=== PATIENT | female | born 1975 | race Caucasian/White ===

== ENCOUNTER 2016-11-25 09:40 | Day surgery (SDC) | payer OTHER ==
[2016-11-25] VITALS (9 sets, daily range): BP systolic 101–134; BP diastolic 61–75; PULSE 74–89; RESP 14–16; TEMP 97.9–98.5; O2SAT 92–100; Ht 177.8 cm; Wt 76.9 kg
[~2016-11-25] VITALS: Ht 177.8 cm; Wt 76.9 kg
[~2016-11-25 09:40] MED LIST: ALBU8.5H5 IH; CEFAZOLIN 1 GRAM INJECTION IV ONE; FEXO180T56 PO; LR 1,000 ML IV SCH
--- OUTSIDE RECORDS SUMMARY | 2016-11-25 09:45 | XMS REPORT | Referral Summary ---
Author Organization Unknown Address Unknown Phone Unavailable Care Team Providers Care Wireless Field Technician Name Role Phone Carmelo Larios Primary Care Physician [phone] Encounter VC Date(s): 09/24/14 - 09/24/14 [facility], Carlos A, [address] [place] [address] Discharge Diagnosis: Apocrine metaplasia of breast Discharge Disposition: Home or Self Care Attending Physician: Nina Horan APRN Admitting Physician: Nina Horan APRN Referring Physician: Bladimir Larios MD Vital Signs Most recent to 1 oldest [Reference Range]: Temperature Tympanic 36.4 degC [36.6-38.1 degC] *LOW* (09/24/14 8:56 AM) Problem List Condition Effective Dates Status Health Status Informant Allergies(Confirmed) Active Asthma(Confirmed) Active GERD Active (gastroesophageal reflux disease)(Confirmed) Migraine Active headache(Confirmed) Allergies, Adverse Reactions, Alerts No Known Medication Allergies Medications albuterol CFC free 90 mcg/inh inhalation aerosol 2 puffs, Inhalation, q4hr, as needed for wheezing, # 1 Each, 1 Refill(s), Pharmacy: [facility] #[id number] Start Date: 07/03/14 Status: Ordered Results No data available for this section Immunizations Vaccine Date Refusal Reason influenza virus vaccine, live 07/17/12 Procedures Procedure Date Related Diagnosis Body Site Bunionectomy1 06/10/11 S/p cholecystectomy 2001 S/P arthroscopy of right knee 2000 S/P tubal ligation 1997 1DR.KEN,T Social History Social History Type Response Smoking Status Current every day smoker Assessment and Plan Extracted from: Title: Ambulatory Patient Education Author: Nina Horan APRN Date : 09/24/14 Family Medicine Hematoma A hematoma is a pocket of blood that collects under the skin, in an organ, in a body space, in a joint space, or in other tissue. The blood can clot to form a lump that you can see and feel. The lump is often firm, sore, and sometimes even painful and tender. Most hematomas get better in a few days to weeks. However, some hematomas may be serious and require medical care.Hematomas can range in size from very small to very large. CAUSES A hematoma can be caused by a blunt or penetrating injury. It can also be caused by leakage from a blood vessel under the skin. Spontaneous leakage from a blood vessel is more likely to occur in elderly people, especially those taking blood thinners. Sometimes, a hematoma can develop after certain medical procedures. SYMPTOMS Unlike a bruise, a hematoma forms a firm lump that you can feel. This lump is the collection of blood. The collection of blood can also cause your skin to turn a blue to dark blue color. If the hematoma is close to the surface of the skin, it often produces a yellowish color in the skin. DIAGNOSIS Your caregiver can determine whether you have a hematoma based on your history and a physical exam. TREATMENT Hematomas usually go away on their own over time. Rarely does the blood need to be drained out of the body. HOME CARE INSTRUCTIONS Put ice on the injured area. Put ice in a plastic bag. Place a towel between your skin and the bag. Leave the ice on for 15-20 minutes, 3-4 times a day for the first 1 to 2 days. After the first 2 days, switch to using warm compresses on the hematoma. Elevate the injured area to help decrease pain and swelling. Wrapping the area with an elastic bandage may also be helpful. Compression helps to reduce swelling and promotes shrinking of the hematoma. Make sure the bandage is not wrapped too tight. If your hematoma is on a lower extremity and is painful, crutches may be helpful for a couple days. Only take vsoh-gux-ysdcmsb or prescription medicines for pain, discomfort, or fever as directed by your caregiver. Most patients can take acetaminophen or ibuprofen for the pain. SEEK IMMEDIATE MEDICAL CARE IF: You have increasing pain, or your pain is not controlled with medicine. You have a fever. You have worsening swelling or discoloration. Your skin over the hematoma breaks or starts bleeding. MAKE SURE YOU: Understand these instructions. Will watch your condition. Will get help right away if you are not doing well or get worse. Document Released: 03/29/2005 Document Revised: 11/06/2012 Document Reviewed: [employer] Patient Information 2014 [employer]. No follow up information was provided. Extracted from: Title: Office Visit Note Author: Nina Horan APPLICATIONS TESTER Date: 09/24/14 Assessment/Plan Apocrine metaplasia of breast Breast biopsy was completely benign. No sign of cancer or precancer. The slight firmness along the incision will continue to soften over the next several months. He sure to keep up with annual mammograms and self breast exams on a monthly basis. Continue general medical care through your primary care physician. Return to our office on an as-needed basis. Ordered: Postoperative Est 13212
--- OUTSIDE RECORDS SUMMARY | 2016-11-25 09:45 | XMS REPORT | Referral Summary ---
Author Author [facility], Family Medicine Organization [facility] Address Unknown Phone Unavailable Care Team Providers Care Manager Wellness Name Role Phone Carmelo Larios Primary Care Physician [phone] Encounter VC Date(s): 09/27/16 - 09/27/16 [facility] [place] [facility] [address] [place] [address] Discharge Diagnosis: Periumbilical abdominal pain Discharge Disposition: 01-Home or Self Care Attending Physician: Bladimir Larios MD Admitting Physician: Bladimir Larios MD Vital Signs Most recent to 1 oldest [Reference Range]: Temperature Tympanic 36.4 degC [36.6-38.1 degC] *LOW* (09/27/16 10:27 AM) Peripheral Pulse 79 bpm Rate [60-100 bpm] (09/27/16 10:27 AM) Blood Pressure 120/60 mmHg [90-140/60-90 mmHg] (09/27/16 10:27 AM) Problem List Condition Effective Dates Status Health Status Informant Allergies(Confirmed) Active Asthma(Confirmed) Active GERD Active (gastroesophageal reflux disease)(Confirmed) Migraine Active headache(Confirmed) Allergies, Adverse Reactions, Alerts No Known Medication Allergies Medications albuterol CFC free 90 mcg/inh inhalation aerosol 2 puffs, Inhalation, q4hr, as needed for wheezing, # 1 Each, 1 Refill(s), Pharmacy: [facility] #[id number] Start Date: 04/13/16 Status: Ordered ibuprofen 200 mg, Oral, as needed for pain, 0 Refill(s) Start Date: 09/27/16 Status: Ordered Results Hematology Most recent to 1 oldest [Reference Range]: WBC [5.0-10.0 8.2 10*3/uL 10*3/uL] (09/27/16 11:07 AM) RBC [3.70-5.20] 4.57 (09/27/16 11:07 AM) Hgb [12.0-16.0 14.4 gm/dL gm/dL] (09/27/16 11:07 AM) Hct [37.0-47.0 %] 42.6 % (09/27/16 11:07 AM) MCV [80.0-96.0 fL] 93.2 fL (09/27/16 11:07 AM) MCH [26.0-34.0 pg] 31.5 pg (09/27/16 11:07 AM) MCHC [32.0-36.0 33.8 gm/dL gm/dL] (09/27/16 11:07 AM) RDW [0.0-14.5 %] 13.1 % (09/27/16 11:07 AM) Platelet [150-400 193 10*3/uL 10*3/uL] (09/27/16 11:07 AM) MPV [8.8-14.8 fL] 11.0 fL (09/27/16 11:07 AM) Neutrophils [50-70 58 % %] (09/27/16 11:07 AM) Lymphocytes [20-40 31 % %] (09/27/16 11:07 AM) Monocytes [4-8 %] 10 % *HI* (09/27/16 11:07 AM) Eosinophils [0-6 %] 2 % (09/27/16 11:07 AM) Basophils [0-2 %] 0 % (09/27/16 11:07 AM) Neutro Absolute 4.75 [2.50-7.00] (09/27/16 11:07 AM) Lymph Absolute 2.56 [1.00-4.00] (09/27/16 11:07 AM) Cocke Absolute 0.78 [0.20-0.80] (09/27/16 11:07 AM) Eos Absolute 0.14 [0.00-0.60] (09/27/16 11:07 AM) Baso Absolute 0.02 [0.00-0.30] (09/27/16 11:07 AM) Chemistry Most recent to 1 oldest [Reference Range]: U Beta hCG Ql Negative (09/27/16 11:07 AM) Urinalysis Most recent to 1 oldest [Reference Range]: UA Color Yellow (09/27/16 11:07 AM) UA Appear Clear (09/27/16 11:07 AM) UA pH [5.0-8.0] 5.5 (09/27/16 11:07 AM) UA Leuk Est Negative 1 [Negative] (09/27/16 11:07 AM) UA Nitrite Negative [Negative] (09/27/16 11:07 AM) UA Protein Negative [Negative] (09/27/16 11:07 AM) UA Glucose Negative [Negative] (09/27/16 11:07 AM) UA Ketones Trace [Negative] *ABN* (09/27/16 11:07 AM) UA Urobilinogen 0.2 mg/dL [<=1.0 mg/dL] (09/27/16 11:07 AM) UA Bili [Negative] Negative (09/27/16 11:07 AM) UA Blood [Negative] Negative (09/27/16 11:07 AM) UA Spec Grav 1.020 [1.003-1.030] (09/27/16 11:07 AM) Type Clean Catch (09/27/16 11:07 AM) 1Result Comment: Reflex microscopic not needed Immunizations Given and Recorded Vaccine Date Status Refusal Reason influenza virus vaccine, live 07/17/12 Given Procedures Procedure Date Related Diagnosis Body Site Collection of venous blood by venipuncture 09/27/16 Biopsy of breast1 09/09/14 Bunionectomy2 06/10/11 S/p cholecystectomy 2001 S/P arthroscopy of right knee 2000 S/P tubal ligation 1997 1BENIGN 2DR.Adriel ROGERS Social History Social History Type Response Smoking Status Current every day smoker Assessment and Plan No data available for this section
--- OUTSIDE RECORDS SUMMARY | 2016-11-25 09:45 | XMS REPORT | Referral Summary ---
Author Author [facility], Family Medicine Organization [facility] Address Unknown Phone Unavailable Care Team Providers Care Assistant Store Manager Sales Name Role Phone Carmelo Larios Primary Care Physician [phone] Encounter VC Date(s): 12/30/14 - 12/30/14 [facility] [place], [address] [place] [address] Discharge Diagnosis: Allergic asthma Discharge Diagnosis: Acute sinusitis Discharge Disposition: 01-Home or Self Care Attending Physician: Galo White DO Admitting Physician: Galo White DO Referring Physician: Bladimir Larios MD Vital Signs Most recent to 1 oldest [Reference Range]: Temperature Tympanic 36.9 degC [36.6-38.1 degC] (12/30/14 9:49 AM) Peripheral Pulse 88 bpm Rate [60-100 bpm] (12/30/14 9:49 AM) Blood Pressure 118/71 mmHg [90-140/60-90 mmHg] (12/30/14 9:49 AM) Problem List Condition Effective Dates Status Health Status Informant Allergies(Confirmed) Active Asthma(Confirmed) Active GERD Active (gastroesophageal reflux disease)(Confirmed) Migraine Active headache(Confirmed) Allergies, Adverse Reactions, Alerts No Known Medication Allergies Medications albuterol CFC free 90 mcg/inh inhalation aerosol 2 puffs, Inhalation, q4hr, as needed for wheezing, # 1 Each, 1 Refill(s), Pharmacy: [facility] #[id number] Start Date: 07/03/14 Status: Ordered Results No data available for this section Immunizations Vaccine Date Refusal Reason influenza virus vaccine, live 07/17/12 Procedures Procedure Date Related Diagnosis Body Site Biopsy of breast1 09/09/14 Bunionectomy2 06/10/11 S/p cholecystectomy 2001 S/P arthroscopy of right knee 2000 S/P tubal ligation 1997 1BENIGN 2DR.Adriel ROGERS Social History Social History Type Response Smoking Status Current every day smoker Assessment and Plan Extracted from: Title: Office Visit Note Author: Galo White DO Date: 12/30/14 Assessment/Plan Acute sinusitis 1. Amoxicillin twice a day for 10 days. 2. Prednisone 20 mg daily for 5 days. 3. Nasal rinses twice a day until symptoms resolve. Ordered: amoxicillin, 1 tabs, Oral, BID, X 10 days, # 20 tabs, 0 Refill(s), Pharmacy: [facility] #[id number], 1 tabs Oral BID,x10 days predniSONE, 1 tabs, Oral, Daily, X 5 days, # 5 tabs, 0 Refill(s), Pharmacy: [facility] #[id number], 1 tabs Oral Daily,x5 days Office Visit Level 3 Est 77428 Allergic asthma 1. Continue with rescue inhaler 2 puffs every 4 hours as needed for coughing, wheezing or shortness of breath. 2. Follow-up if worsening presentation.
--- OUTSIDE RECORDS SUMMARY | 2016-11-25 09:45 | XMS REPORT | Referral Summary ---
Author Author [facility] [place], Surgery Organization [facility] Address Unknown Phone Unavailable Care Team Providers Care Agriculture Intern Name Role Phone Carmelo Larios Primary Care Physician [phone] Encounter VC Date(s): 09/28/16 - 09/28/16 [facility] [place], Surgery [address] [place] [address] [place] [address] Discharge Diagnosis: Umbilical hernia Discharge Disposition: 01-Home or Self Care Attending Physician: Artur Galarza MD Admitting Physician: Artur Galarza MD Referring Physician: Bladimir Larios MD Vital Signs Most recent to 1 oldest [Reference Range]: Temperature Tympanic 36.4 degC [36.6-38.1 degC] *LOW* (09/28/16 4:04 PM) Peripheral Pulse 85 bpm Rate [60-100 bpm] (09/28/16 4:04 PM) Blood Pressure 112/68 mmHg [90-140/60-90 mmHg] (09/28/16 4:04 PM) SpO2 98 % (09/28/16 4:04 PM) Problem List Condition Effective Dates Status Health Status Informant Allergies(Confirmed) Active Asthma(Confirmed) Active GERD Active (gastroesophageal reflux disease)(Confirmed) Migraine Active headache(Confirmed) Allergies, Adverse Reactions, Alerts Substance Reaction Severity Status morphine1 Active 1Lowers already low blood pressure Medications albuterol CFC free 90 mcg/inh inhalation aerosol 2 puffs, Inhalation, q4hr, as needed for wheezing, # 1 Each, 1 Refill(s), Pharmacy: [facility] #[id number] Start Date: 04/13/16 Status: Ordered ibuprofen 200 mg, Oral, as needed for pain, 0 Refill(s) Start Date: 09/27/16 Status: Ordered Results No data available for this section Immunizations Given and Recorded Vaccine Date Status Refusal Reason influenza virus vaccine, live 07/17/12 Given Procedures Procedure Date Related Diagnosis Body Site Biopsy of breast1 09/09/14 Bunionectomy2 06/10/11 S/p cholecystectomy 2001 S/P arthroscopy of right knee 2000 S/P tubal ligation 1997 1BENIGN 2DR.SILVIANG,Adriel Social History Social History Type Response Smoking Status Current every day smoker Assessment and Plan Extracted from: Title: Ambulatory Patient Education Author: Artur Galarza MD Date: Procedures Umbilical Herniorrhaphy Herniorrhaphy is surgery to repair a hernia. A hernia is the protrusion of a part of an organ through an abdominal opening. An umbilical hernia means that your hernia is in the area around your navel. If the hernia is not repaired, the gap could get bigger. Your intestines or other tissues, such as fat, could get trapped in the gap. This can lead to other health problems, such as blocked intestines. If the hernia is fixed before problems set in, you may be allowed to go home the same day as the surgery (outpatient). LET YOUR HEALTH CARE PROVIDER KNOW ABOUT: Allergies to food or medicine. Medicines taken, including vitamins, herbs, eye drops, jtvw-ijz-itghtjj medicines, and creams. Use of steroids (by mouth or creams). Previous problems with anesthetics or numbing medicines. History of bleeding problems or blood clots. Previous surgery. Other health problems, including diabetes and kidney problems. Possibility of , if this applies. RISKS AND COMPLICATIONS Pain. Excessive bleeding. Hematoma. This is a pocket of blood that collects under the surgery site. Infection at the surgery site. Numbness at the surgery site. Swelling and bruising. Blood clots. Intestinal damage (rare). Scarring. Skin damage. Development of another hernia. This may require another surgery. BEFORE THE PROCEDURE Ask your health care provider about changing or stopping your regular medicines. You may need to stop taking aspirin, nonsteroidal anti-inflammatory drugs (NSAIDs), vitamin E, and blood thinners as early as 2 weeks before the procedure. Do not eat or drink for 8 hours before the procedure, or as directed by your health care provider. You might be asked to shower or wash with an antibacterial soap before the procedure. Wear comfortable clothes that will be easy to put on after the procedure. PROCEDURE You will be given an intravenous (IV) tube. A needle will be inserted in your arm. Medicine will flow directly into your body through this needle. You might be given medicine to help you relax (sedative). You will be given medicine that numbs the area (local anesthetic) or medicine that makes you sleep (general anesthetic). If you have open surgery: The surgeon will make a cut (incision) in your abdomen. The gap in the muscle wall will be repaired. The surgeon may sew the edges together over the gap or use a mesh material to strengthen the area. When mesh is used, the body grows new, strong tissue into and around it. This new tissue closes the gap. A drain might be put in to remove excess fluid from the body after surgery. The surgeon will close the incision with stitches, glue, or melvi. If you have laparoscopic surgery: The surgeon will make several small incisions in your abdomen. A thin, lighted tube (laparoscope) will be inserted into the abdomen through an incision. A camera is attached to the laparoscope that allows the surgeon to see inside the abdomen. Tools will be inserted through the other incisions to repair the hernia. Usually, mesh is used to cover the gap. The surgeon will close the incisions with stitches. AFTER THE PROCEDURE You will be taken to a recovery area. A nurse will watch and check your progress. When you are awake, feeling well, and taking fluids well, you may be allowed to go home. In some cases, you may need to stay overnight in the hospital. Arrange for someone to drive you home. This information is not intended to replace advice given to you by your health care provider. Make sure you discuss any questions you have with your health care provider. Document Released: 11/11/2009 Document Revised: 09/05/2015 Document Reviewed: [employer] Interactive Patient Education 2016 [employer] No follow up information was provided. Extracted from: Title: Office Visit Note Author: Artur Galarza MD Date: 09/28/16 Assessment/Plan 1.Umbilical hernia Ordered: Office Visit Level 4 Est 15192 Plan:Umbilical herniorrhaphy with potential incorporation of mesh: I did review the patient's chart including office note performed by her PCP from September 27, 2016.I informed the patient that she does indeed have a umbilicalhernia.I donot feel that her umbilical hernia at this time isincarcerated or strangulated.I would recommend that at some point in time she proceed with an electiveumbilical herniorrhaphy.I spent a fair amount of time discussing hernias with the patient, I did discuss in detail with the patient what an umbilical herniorrhaphy with mesh entailed and its associated riskswhich included but was not inclusive of bleeding and infection, as well as potential for recurrence. The patient understood and was scheduled to undergo umbilical herniorrhaphy with potential incorporation of mesh in the near future.
--- NOTE | 2016-11-25 10:18 | ANESPREOP ---
Anesthesia Record Date and Time DATE: 11/25/16 TIME: 10:16 Pre-Op Diagnosis umbilical hernia Proposed Surgical Procedure UMBILICAL HERNIA REPAIR Allergies: Coded Allergies: morphine (Unverified Adverse Reaction, Unknown, HYPOTENSION, 11/24/16) Ht/Wt/BMI Height: 5 ' 11.00 " Weight: kg BMI: kg/m2 Medications Inpatient Medications Current Medications Medications (Trade) Dose Ordered Sig/Katina Start Time Stop Time Status Last Admin Dose Admin Lactated Ringer's (Lactated Ringers) 1,000 ml @ 50 mls/hr Q20H 11/25/16 07:00 Albuterol Sulfate (Proair Hfa) 8.5 Gm Aerosol, 8.5 GM IH PRN, (Reported) Fexofenadine Hcl (Mariana) 180 Mg Tablet, 180 MG PO PRN, (Reported) Currently on Beta Crystal: No Medical/Surgical History Anesthesia PMH: Reports: Asthma, Reflux, Denies: Anesthesia Reactions (NO AIRWAY ISSUES ), Cancer, Clotting Problems, Glaucoma, Malignant Hyperthermia, Sleep Apnea Smoking Status: Current every day smoker Has pt. smoked today?: No Use Chewing Tobacco?: No Second Hand Exposure: No Substance Use Type: does not use Substance last used: unknown Alcohol Intake: rarely Last Drink: unknown HX of Last Menstrual Period: OCTOBER 2016 Past Surgical History Orthopedic Surgeries: Yes - R KNEE SCOPE, L BUNIONECTOMY Abdominal Surgeries: Yes - MICHELLE Genitourinary Surgeries: Cardiac Surgeries: Endocrine Surgeries: Reproductive Surgeries: - TUBAL LIGATION, BENIGN MASS-R. BREAST Neurological Surgeries: Ear Surgeries: Nose Surgeries: Throat Surgeries: Other Surgeries: Anesthesia Adverse Reactions: FOUND none Family Hx of Anesthesia Advers: none Hx of Motion Sickness: No Pertinent Findings EKG Rhythm: Sinus Rhythm Physical Exam Respiratory: Bilat breath sounds equal, Lungs clear Cardiovascular: FOUND Regular rate, rhythm, FOUND No murmur Airway Assessment Mallampati Score: I TMD: 3 Fingerbreadths Neck Extension: Good Overall Assessment: No Airway Concerns ASA: 2 Plan Anesthesia Plan: TIVA Discussion Discussed risks/options/alternatives of anesthesia and questions answered. Patient consents. Nursing pain assessment noted. Attestation Statement Prior to the delivery of any anesthetic medication, I examined the patient, developed the plan, obtained the patient's consent and discussed the risk and benefits of the procedure with the patient/guardian. NASIR MOORE CRNA Nov 25, 2016 10:18
[2016-11-25] MEDS ORDERED: LOTE5DRO3 OP (10:26)
[2016-11-25] MEDS ORDERED: HYDROCODONE-APAP 2.5mg-108mg/5ml ELIXIR PO PRN (11:00)
[2016-11-25] MEDS ORDERED: BUPIVACAINE 0.25%/EPI 1:200,000 30ml SDV ONE (12:04)
[2016-11-25] MEDS ORDERED: PROPOFOL 500mg 50 ML IV ONE ×3 (12:08→13:01)
[2016-11-25] MEDS ORDERED: GLYCOPYRROLATE 0.4mg/2ml INJECTION ONE (12:13)
[2016-11-25] MEDS ORDERED: ONDANSETRON 4mg/2ml INJECTION ONE (12:14)
[2016-11-25] MEDS ORDERED: FENTANYL 100mcg/2ml INJECTION ONE ×2 (12:14→12:45)
[2016-11-25] MEDS ORDERED: MIDAZOLAM 2mg/2ml INJECTION ONE (12:22)
[2016-11-25] MEDS ORDERED: KETOROLAC 30mg/ml INJECTION ONE (13:09)
[2016-11-25] MEDS ORDERED: PROPOFOL 200mg 20 ML IV ONE (13:35)
[2016-11-25] MEDS ORDERED: IBUP-1724 PO (13:57)
[2016-11-25] MEDS ORDERED: DOCU100C PO (13:57)
[2016-11-25] MEDS ORDERED: HYDR118S10 PO (13:57)
[2016-11-25] MEDS ORDERED: HYDROMORPHONE 2mg/ml INJECTION IV PRN (14:00)
--- NOTE | 2016-11-25 14:01 | ANESPO ---
Post-Op Note Date 11/25/16 Time: 14:00 Status Pt Participated in Evaluation: Pt participated in person Vital Signs Date Time Temp Pulse Resp B/P Pulse Ox O2 Delivery O2 Flow Rate FiO2 11/25/16 12:15 98.5 11/25/16 10:22 89 16 113/75 100 Room Air Respiratory Function: Airway patent, Regular respirations Cardiovascular Function: Regular pulse Mental Status: Alert/oriented Pain Level Intensity: 0 Hydration: Taking po fluids, IV infusing Complications during Recovery None apparent Post-Anesthesia Notes [email or web address]. [email or web address] Follow-Up Instructions Instructions Per Surgeon Additional Information none NASIR MOORE CRNA Nov 25, 2016 14:01
--- NOTE | 2016-11-26 09:34 | OPNOTEF ---
DATE OF SERVICE 11/08/2016 SURGEON Artur Galarza MD [employer] Maulik Horan APRN PREOPERATIVE DIAGNOSIS Incarcerated umbilical hernia. POSTOPERATIVE DIAGNOSIS Incarcerated ventral and umbilical hernia. PROCEDURE Repair of incarcerated umbilical and ventral hernia. ANESTHESIA TIVA/local BRIEF HISTORY/INDICATIONS Mrs. Benjamin is a 41-year-old female who presented to my office recently as a result of a "lump" located at her umbilicus that was causing her discomfort. Patient also informed me that at times she could feel an area of fullness located a few centimeters above her umbilicus. In fact, the patient told me at times she could feel things "squishing through this area". As a result of the above indications, it was recommended to the patient that she should undergo an elective repair of her visible and palpable umbilical hernia. For completeness, please refer to notes included in the patient's chart. DESCRIPTION OF PROCEDURE After informed consent was obtained, patient was brought to the operative suite and placed on the table in supine fashion. Periumbilical region was then prepped and draped in sterile fashion. Formal time-out was then completed. 0.25% Marcaine with epinephrine was injected circumferentially around the level of the umbilicus. Next, initially a 3 cm curved infraumbilical incision was then performed. Dissection was then carried down to the deep subcuticular tissues. Base of the umbilicus was then dissected off the underlying hernia sac. Next the hernia at the base of the hernia sac was then began to be dissected out circumferentially. As the patient had stated preoperatively, she was indeed found to have a separate fascial defect located about 3-4 cm above the level of the umbilicus. In fact this hernia was actually larger than the known visible umbilical hernia. The incision was then extended in a slightly more cephalad fashion and extended out laterally so that the incision now was about 6 cm in total length. Dissection was then carried out along the fascia in a cephalad fashion up to the additional fascial defect. This fascial defect was then also dissected out circumferentially. Both hernias contained some incarcerated omentum. The omentum and hernia sac was dissected out to the fascial edges and returned back into the peritoneal cavity. Preperitoneal dissection was then performed circumferentially around each fascial defect. The upper fascial defect was perhaps on the order of about 2.5 to 3 cm in total diameter. The fascial defect located at the level of the umbilicus was about 1 cm to 1.5 cm in diameter. As stated above there was a normal bridge of fascia about 4 cm in length between the two fascial defects. Preperitoneal dissection was performed circumferentially around each fascial defect. Next attention was then direct towards closure of the fascial defects. A small opening was then created within the bridge of fascia between the two fascial defects. An 8-cm piece of Ventralex mesh that contained some tail portions of the mesh was then brought forth into the operative field. A hemostat was then placed through the small opening that I had created within the bridge of fascia between the two fascial defects. The tail portions of the mesh were then grasped and the mesh was then brought forth and placed in a preperitoneal location. Mesh was 8 cm in total diameter and did cover each fascial defect by a few centimeters. The preperitoneal space had been dissected out circumferentially quite well and the mesh was able to lay flat in the preperitoneal space. To secure the mesh at this location, four quadrant sutures were placed in the following fashion. A single interrupted suture was placed at the 12 o'clock, 3 o'clock, 6 o'clock and 9 o'clock positions. First utilizing an 0 PDS suture, the needle was passed through the fascia and then subsequently obtaining a small purchase of the mesh at its periphery and then subsequently passing the needle back up through the mesh. Each quadrant suture was then tied securely resulting in securing the mesh circumferentially in the preperitoneal location. Next attention was then focused towards closure of the fascial defects. Each fascial defect was then closed in a running fashion utilizing 0 PDS suture. This resulted in nice imbrication of all the edges of the fascial defect with incorporation of the mesh in a preperitoneal location as discussed above. Attention was directed towards closure. Base of the umbilicus was then secured to underlying fascia by placing a single interrupted suture of 3-0 Vicryl. First a small purchase of the fascia was obtained followed by a small subcutaneous purchase at the base umbilicus. Deep subcutaneous tissues were then closed in a running fashion with 3-0 Vicryl. Skin itself was then closed in a running subcuticular fashion with 4-0 Monocryl. Dermabond was placed overlying the incisions. Patient is in the process of awakening from her anesthetic and will be sent back to recovery room once deemed in stable condition. GEORGE
== END 2016-11-25 15:11 | disposition home or self-care (01) ==
LOC: NSC 09:40
PROVIDERS: ATTEND Surgery
DX: K42.0 Umbilical hernia with obstruction, without gangrene (principal); K43.6 Other and unspecified ventral hernia with obstruction, without gangrene; J45.909 Unspecified asthma, uncomplicated; K21.9 Gastro-esophageal reflux disease without esophagitis; F17.200 Nicotine dependence, unspecified, uncomplicated; Z79.1 Long term (current) use of non-steroidal anti-inflammatories (NSAID); Z79.899 Other long term (current) drug therapy
CPT/HCPCS: 49561; 49568; 49587; 81025; J0690; J1170; J1885; J2250; J2405; J2704; J3010; J7120